=== PATIENT | male | born 1990 | race Hispanic/Latino ===

== ENCOUNTER 2018-10-04 06:34 | Emergency (ER) | payer OTHER ==
[2018-10-04 07:10] LABS: BASOPHILS % (AUTO) 0.8 % (0.0-5.0); EOSINOPHILS % (AUTO) 0.1 % (0.0-8.0); HEMATOCRIT 48.8 % (42-54); LYMPHOCYTES % (AUTO) 16.4 % (21.0-51.0); MEAN CORPUSCULAR HEMOGLOBIN 28.5 pg (27.0-33.0); MEAN CORPUSCULAR HGB CONC 33.9 g/dL (32.0-36.0); MEAN CORPUSCULAR VOLUME 84.2 fL (79-99); MONOCYTES % (AUTO) 6.4 % (3.0-13.0); NEUTROPHILS % (AUTO) 76.3 % (40.0-77.0); PLATELET COUNT (AUTO) 184 K/uL (130-400); RED BLOOD CELL COUNT(AUTO) 5.79 MIL/uL (4.50-6.20); RED CELL DISTRIBUTION WIDTH 13.9 % (11.0-15.5); WHITE BLOOD COUNT (AUTO) 12.8 K/uL (4.8-10.8)
[2018-10-04 07:11] LABS: APPEARANCE,URINE Clear (CLEAR); BILIRUBIN,URINE Negative (NEGATIVE); COLOR,URINE Yellow (YELLOW); GLUCOSE, URINE (UA) Negative (NEGATIVE); KETONES,URINE Negative (NEGATIVE); LEUKOCYTE ESTERASE ,URINE Negative (NEGATIVE); NITRATE,URINE Negative (NEGATIVE); OCCULT BLOOD,URINE Negative (NEGATIVE); PROTEIN,URINE Negative (NEGATIVE); UROBILINOGEN,URINE 0.2 mg/dL (0.2-1.0)
[2018-10-04 07:15] LABS: CREATININE 1.2 mg/dL (0.5-1.5); POTASSIUM 3.1 mmol/L (3.5-5.1)
[2018-10-04 07:20] LABS: ALBUMIN 4.4 g/dL (3.5-5.0); BILIRUBIN,TOTAL 0.3 mg/dL (0.2-1.0); TOTAL PROTEIN, SERUM 8.7 g/dL (6.0-8.3)
== END 2018-10-04 08:32 | disposition home or self-care (01) ==
LOC: EDH 06:34
DX: S82.242A Displaced spiral fracture of shaft of left tibia, initial encounter for closed fracture (principal); S82.61XA Displaced fracture of lateral malleolus of right fibula, initial encounter for closed fracture; W18.39XA Other fall on same level, initial encounter; Y93.89 Activity, other specified; Y92.89 Other specified places as the place of occurrence of the external cause; Y99.8 Other external cause status
CPT/HCPCS: 29515; 36415; 73590; 73600; 80053; 81003; 85025

== ENCOUNTER 2018-10-12 22:11 | Emergency (ER) | payer SELFPAY | END 2018-10-12 23:59 | disposition home or self-care (01) | LOC: EDH 22:11 | DX: S82.892A Other fracture of left lower leg, initial encounter for closed fracture (principal); Z72.0 Tobacco use; X58.XXXA Exposure to other specified factors, initial encounter; Y93.89 Activity, other specified; Y92.098 Other place in other non-institutional residence as the place of occurrence of the external cause; Y99.8 Other external cause status | CPT/HCPCS: 73610 ==

== ENCOUNTER 2018-12-07 15:09 | Emergency (ER) | payer SELFPAY ==
[2018-12-07 15:30] LABS: APPEARANCE,URINE CLEAR (CLEAR); BILIRUBIN,URINE NEGATIVE (NEGATIVE); COLOR,URINE YELLOW (YELLOW); GLUCOSE, URINE (UA) NEGATIVE (NEGATIVE); KETONES,URINE NEGATIVE (NEGATIVE); LEUKOCYTE ESTERASE ,URINE NEGATIVE (NEGATIVE); NITRATE,URINE NEGATIVE (NEGATIVE); OCCULT BLOOD,URINE TRACE-INTACT (NEGATIVE); PROTEIN,URINE TRACE mg/dL (NEGATIVE); UROBILINOGEN,URINE 0.2 mg/dL (0.2-1.0)
[2018-12-07 15:39] LABS: BACTERIA,URINE Moderate /HPF (None Seen); MUCUS,URINE Moderate LPF (None Seen)
[2018-12-07] MEDS ORDERED: HYOSCYAMINE SULFATE 0.125 MG TAB.SUBL SL ONE (15:39)
[2018-12-07 15:53] LABS: BASOPHILS % (AUTO) 0.2 % (0.0-5.0); EOSINOPHILS % (AUTO) 0.4 % (0.0-8.0); HEMATOCRIT 49.2 % (42-54); LYMPHOCYTES % (AUTO) 6.7 % (21.0-51.0); MEAN CORPUSCULAR HEMOGLOBIN 28.3 pg (27.0-33.0); MEAN CORPUSCULAR HGB CONC 33.7 g/dL (32.0-36.0); MEAN CORPUSCULAR VOLUME 83.9 fL (79-99); MONOCYTES % (AUTO) 9.5 % (3.0-13.0); NEUTROPHILS % (AUTO) 83.2 % (40.0-77.0); PLATELET COUNT (AUTO) 225 K/uL (130-400); RED BLOOD CELL COUNT(AUTO) 5.86 MIL/uL (4.50-6.20); RED CELL DISTRIBUTION WIDTH 14.1 % (11.0-15.5); WHITE BLOOD COUNT (AUTO) 12.1 K/uL (4.8-10.8)
[2018-12-07 16:16] LABS: CREATININE 1.1 mg/dL (0.5-1.5); POTASSIUM 3.8 mmol/L (3.5-5.1)
[2018-12-07 16:18] LABS: ALBUMIN 3.9 g/dL (3.5-5.0); BILIRUBIN,DIRECT 0.1 mg/dL (0.0-0.3); BILIRUBIN,TOTAL 0.6 mg/dL (0.2-1.0); TOTAL PROTEIN, SERUM 8.1 g/dL (6.0-8.3)
== END 2018-12-07 16:27 | disposition home or self-care (01) ==
LOC: EDH 15:09
DX: K52.9 Noninfective gastroenteritis and colitis, unspecified (principal)
CPT/HCPCS: 36415; 80048; 80076; 81001; 85025

== ENCOUNTER 2019-09-10 05:50 | Emergency (ER) | payer OTHER ==
[2019-09-10] MEDS ORDERED: LIDOCAINE 1%-EPI 1:100,000 20 ML VIAL IJ ONE (06:00)
[2019-09-10] MEDS ORDERED: SILVER NITRATE APPLICATOR 1 SWAB TP ONE (06:16)
== END 2019-09-10 06:40 | disposition home or self-care (01) ==
LOC: EDH 05:50
DX: S61.411A Laceration without foreign body of right hand, initial encounter (principal); X58.XXXA Exposure to other specified factors, initial encounter; Y93.89 Activity, other specified; Y92.098 Other place in other non-institutional residence as the place of occurrence of the external cause; Y99.8 Other external cause status
CPT/HCPCS: 12042; 99284; J3490

== ENCOUNTER 2019-09-22 17:11 | Emergency (ER) | payer SELFPAY | END 2019-09-22 17:48 | disposition home or self-care (01) | LOC: EDH 17:11 | DX: S61.411D Laceration without foreign body of right hand, subsequent encounter (principal); X58.XXXD Exposure to other specified factors, subsequent encounter ==

== ENCOUNTER 2019-11-22 19:36 | Emergency (ER) | payer OTHER ==
[2019-11-22] MEDS ORDERED: TETANUS/DIPHTHERIA TOXOID [ADULT] 0.5 ML VIAL IM ONE (21:36)
== END 2019-11-22 23:48 | disposition home or self-care (01) ==
LOC: EDH 19:36
DX: S91.112A Laceration without foreign body of left great toe without damage to nail, initial encounter (principal); W25.XXXA Contact with sharp glass, initial encounter; Y93.89 Activity, other specified; Y92.098 Other place in other non-institutional residence as the place of occurrence of the external cause; Y99.8 Other external cause status
CPT/HCPCS: 73660; 90471; 90714

== ENCOUNTER 2020-09-14 12:51 | Emergency (ER) | payer OTHER ==
[2020-09-14] MEDS ORDERED: HYDROCODONE/ACETAMINOPHEN 5/325 MG TAB ONE (13:44)
[2020-09-14] MEDS ORDERED: KETOROLAC TROMETHAMINE 30MG/ML ONE (13:44)
== END 2020-09-14 15:11 | disposition home or self-care (01) ==
LOC: EDH 12:51
DX: S62.306A Unspecified fracture of fifth metacarpal bone, right hand, initial encounter for closed fracture (principal); W22.8XXA Striking against or struck by other objects, initial encounter; Y93.89 Activity, other specified; Y92.098 Other place in other non-institutional residence as the place of occurrence of the external cause; Y99.8 Other external cause status
CPT/HCPCS: 29125; 73130; 96372; 99283; J1885

== ENCOUNTER 2021-02-15 18:40 | Emergency (ER) | payer OTHER ==
[~2021-02-15] VITALS: Ht 170.2 cm; Wt 79.4 kg
[2021-02-15 18:42] VITALS: BP 166/77
== END 2021-02-15 22:34 | disposition left against medical advice (07) ==
LOC: EDH 18:40
DX: Z48.02 Encounter for removal of sutures (principal)

== ENCOUNTER 2024-08-05 12:52 | Emergency (ER) | payer SELFPAY ==
[~2024-08-05] VITALS: Ht 172.7 cm; Wt 86.2 kg
--- NOTE | 2024-08-05 13:11 | ERN ---
ED Note History of Present Illness Stated Complaint: STD TESTING Chief Complaint: Sexually Transmitted Disease Time Seen by MD: 13:04 Time Seen by Midlevel: 13:10 Dictation: 33-year-old male coming in with concerns of STD exposure. Patient states couple of days ago he was tested on urgent care for chlamydia however states he had intercourse again with the person who might have chlamydia and wanted to make sure that is everything was all right. Patient states it when he was seen at the urgent care he received an injection and pills for possible STD exposure two days ago. At this time patient has no complaints Allergies: Coded Allergies: No Known Allergies (Unverified Allergy, Unknown, 10/04/18) Past Medical History Past Medical History: No Pertinent History Surgical History Other: LEFT ELBOW Review of System Dictation Constitutional: Negative for fever,chills, and weight loss Eyes: Negative for injury, pain,redness, and discharge ENT: Negative for injury,pain or swelling Cardiovascular: Negative for chest pain, palpitations, and edema Respiratory: Negative for shortness of breath, cough, and wheezing, Abdomen/GI: Negative for abdominal pain, nausea, vomiting, diarrhea, and constipation Back: Negative for injury and pain : Negative for injury, bleeding and discharge MS/Extremity: Negative for injury and deformity Skin: Negative for rash, and discoloration Neuro: Negative for headache, weakness, numbness, tingling, and seizure Psych: Negative for suicide ideation, homicidal ideation, and hallucinations Review of Systems: was completed Physical Exam Dictation General: awake, alert, NAD Head/Face: Normocephalic, atraumatic Eyes: PERRL, EOMI, vision at baseline ENT: oral cavity clear, TMs clear, no signs of infection Neck: Trachea midline, supple, no nuchal rigidity Cardiovascular: RRR, normal S1/S2, No MRGs, no JVD Respiratory: CTAB, no respiratory distress, No rales or wheezes Abdomen: Soft, non-tender, non-distended, normal bowel sounds, no guarding or rebound. Skin: Warm, dry, normal turgor, no rash MS/Extremity: Pulses equal, no cyanosis, neurovascular intact, FROM Neuro: COAx4, GCS 15, strength 5/5, CN 2-12 intact, normal cerebellar exam, normal gait, Psych: Normal behavior, mood, and affect normal Medical Decision Making MDM MDM: 33-year-old male coming in with concerns of STD exposure. Patient states couple of days ago he was tested on urgent care for chlamydia however states he had intercourse again with the person who might have chlamydia and wanted to make sure that is everything was all right. Patient states it when he was seen at the urgent care he received an injection and pills for possible STD exposure two days ago. At this time patient has no complaints. This with the patient that he needs to not have any intercourse with a any other person to prevent possible STD. Educated he develops any symptoms like fever, nausea vomiting, lesions to follow up with PCP. Differential diagnosis: SCD, STD exposure Rationale: Tests considered and ordered secondary to shared decision making include: Previous outside records reviewed: Old ER visits. Risk of complication and/or morbidity or mortality of patient management: None Medications-Per medication reconciliation Need for hospitalization: Patient does not meet criteria for hospitalization. Need for emergency major/minor surgery: No There are no social concerns with this patient. Prescription drug management Prescriptions will include symptomatic care Patient's prior external medical records from other ER visits were reviewed by me as indicated. Prior testing and results from previous visits were reviewed. Prior tests were taken into account with medical decision making and resource utilization, independent historian/historians were used to obtain complete medical history. I independently interpreted the test that were performed, results were reviewed by me and considered findings on radiology if ordered. Medical management and examination interpretation discussions were had by me with other qualified healthcare professionals as indicated for the patient's care. DX & DISP Disposition: Discharge Departure Impression: Primary Impression: Wellness examination Condition: Stable Additional Instructions: Did not have any sexual intercourse with a any other person to prevent the possible STD. You develop any symptoms please follow up with your PCP. Referrals: SELF,REFERRAL (PCP) Time of Disposition: 13:10 I have reviewed the case, and I agree with, Diagnosis and Plan BARBARA PAINTER NP Aug 05, 2024 13:11
[2024-08-05 13:42] VITALS: BP 160/80; PULSE 65; RESP 16; TEMP 98.6; O2SAT 98
--- NOTE | 2024-08-05 13:42 | NUR ---
PRE PRESENT WELLNESS CHECK STD
--- NOTE | 2024-08-05 13:49 | NUR ---
UNABLE TO DEPART DUE TO REG PROCESS
== END 2024-08-05 13:50 | disposition home or self-care (01) ==
LOC: EEVIPCON 12:52 → EDH 12:52
DX: Z04.89 Encounter for examination and observation for other specified reasons (principal)
CPT/HCPCS: 99281